=== PATIENT | female | born 1960 | race Caucasian/White ===

== ENCOUNTER 2021-07-06 19:20 | Emergency (ER) | payer MEDICARE ==
[2021-07-06 21:19] LABS: HEMOGLOBIN 14.5 gm/dl (12.3-15.3); RED BLOOD COUNT 4.27 M/UL (4.00-5.10); WHITE BLOOD COUNT 11.2 K/UL (4.5-11.0)
[2021-07-06 21:35] LABS: BUN/CREATININE RATIO 22 (0-10)
== END 2021-07-06 23:24 | disposition home or self-care (01) ==
LOC: ER1 19:20
PROVIDERS: Family Medicine
DX: R07.89 Other chest pain (principal); I10 Essential (primary) hypertension
CPT/HCPCS: 80053; 82550; 82553; 83874; 83880; 84484; 85025; 85379; 85610; 93005; 99285

== ENCOUNTER → 2021-10-13 | Outpatient (CLI) | payer OTHER | LOC: KOH-I 10:50 | DX: J45.909 Unspecified asthma, uncomplicated (principal); R91.8 Other nonspecific abnormal finding of lung field | CPT/HCPCS: 71046 ==

== ENCOUNTER → 2021-11-24 | Outpatient (CLI) | payer OTHER | LOC: HEART 5 13:33 | DX: J45.909 Unspecified asthma, uncomplicated (principal) | CPT/HCPCS: 94060; 94729 ==